=== PATIENT | male | born 1955 | race Caucasian/White ===

== ENCOUNTER 2017-11-27 09:32 | Inpatient (IN) | payer OTHER, BC ==
[2017-11-27 09:38] VITALS: BMI 32.5
[2017-11-27] MEDS ORDERED: PIPERACIL/TAZOB 3.375 GM 3.375 GM/50 ML PREMIX IVPB ONE (12:39)
[2017-11-27] MEDS ORDERED: VANCOMYCIN 1,000 MG in DEXTROSE 5%-WATER - 250 ML IVPB ONE (12:39)
--- NOTE | 2017-11-27 12:39 | PDOC ---
History of Present Illness - General Chief Complaint: Wound Infection Stated Complaint: PT SENT BY PCP Time Seen by Provider: 11/27/17 12:26 History Source: Patient Exam Limitations: No Limitations - History of Present Illness Initial Comments: 11/27/17 12:47 Patient is a 62-year-old male past medical history of an IDDM, hypertension, who presents emergency department today for evaluation of his wound. Patient states he was seen in his vermin exterminator office (Dr. Perry) yesterday and was found to have a diabetic foot ulcer to the bottom of his left foot. Upon further evaluation of his foot, his vermin exterminator also found cellulitis. Told patient he should present to the emergency department for IV antibiotics. Patient states that he has some pain to the left foot however he otherwise feels fine. Denies fevers, chills, flulike symptoms, chest pain, shortness of breath, nausea, vomiting, diarrhea, headache, dizziness and lightheadedness. Past History - Travel Traveled outside of the country in the last 30 days: No Close contact w/someone who was outside of country & ill: No - Past Medical History Allergies/Adverse Reactions: Allergies Allergy/AdvReac Type Severity Reaction Status Date / Time No Known Allergies Allergy Verified 11/27/17 09:37 Home Medications: Ambulatory Orders Alfuzosin HCl [Alfuzosin HCl ER] 10 mg PO DAILY 11/27/17 Dapagliflozin Propanediol [Farxiga] 10 mg PO DAILY 11/27/17 Dulaglutide [Trulicity] 0.75 mg SCJ WEEKLY 11/27/17 Glimepiride 4 mg PO BID 11/27/17 Levothyroxine [Synthroid -] 50 mcg PO DAILY 11/27/17 Losartan-Hctz 100-25 mg Tab 100 mg PO DAILY 11/27/17 Metformin HCl [Glucophage] 1,000 mg PO BID 11/27/17 Ranolazine [Ranexa] 500 mg PO DAILY 11/27/17 Rosuvastatin [Crestor -] 5 mg PO HS 11/27/17 CVA: No COPD: No Diabetes: Yes HTN: Yes Hypercholesterolemia: Yes Thyroid Disease: Yes - Suicide/Smoking/Psychosocial Hx Smoking Status: No Smoking History: Former smoker Have you smoked in the past 12 months: No Number of Cigarettes Smoked Daily: 0 If you are a former smoker, when did you quit?: 28 YRS Information on smoking cessation initiated: No Hx Alcohol Use: Yes (SOCIAL) Drug/Substance Use Hx: No Substance Use Type: None Review of Systems - Review of Systems Able to Perform ROS?: Yes Comments:: 11/27/17 13:31 CONSTITUTIONAL: Absent: fever, chills, diaphoresis, generalized weakness, malaise, loss of appetite HEENT: Absent: rhinorrhea, nasal congestion, throat pain, throat swelling, difficulty swallowing, mouth swelling, ear pain, eye pain, visual Changes CARDIOVASCULAR: Absent: chest pain, loss of consciousness, palpitations, irregular heart rate, peripheral edema RESPIRATORY: Absent: cough, shortness of breath, dyspnea with exertion, orthopnea, wheezing, stridor, hemoptysis GASTROINTESTINAL: Absent: abdominal pain, abdominal distension, nausea, vomiting, diarrhea, constipation, melena, hematochezia GENITOURINARY: Absent: dysuria, frequency, urgency, hesitancy, hematuria, flank pain, genital pain MUSCULOSKELETAL: Absent: myalgia, arthralgia, joint swelling SKIN: Present: foot ulcer L. Absent: rash, itching, pallor HEMATOLOGIC/IMMUNOLOGIC: Absent: easy bleeding, easy bruising, lymphadenopathy, frequent infections ENDOCRINE: Absent: unexplained weight gain, unexplained weight loss, heat intolerance, cold intolerance NEUROLOGIC: Absent: headache, focal weakness or paresthesias, dizziness, unsteady gait, seizure, mental status changes, bladder or bowel incontinence PSYCHIATRIC: Absent: anxiety, depression, suicidal or homicidal ideation, hallucinations. Is the patient limited Mauritanian proficient: No *Physical Exam - Vital Signs Last Vital Signs Temp Pulse Resp BP Pulse Ox 98.0 F 104 H 20 133/76 97 11/27/17 09:34 11/27/17 09:34 11/27/17 09:34 11/27/17 09:34 11/27/17 09:34 - Physical Exam Comments: 11/27/17 13:32 GENERAL: Well developed, well nourished. Awake and alert x3. No acute distress. Breathing easily on exam bed. HEENT: Normocephalic, atraumatic. PERRLA, EOMI. No conjunctival pallor. Sclera are non- icteric. Moist mucous membranes. Oropharynx is clear. NECK: Supple. Full ROM. No JVD. Carotid pulses 2+ and symmetric, without bruits. No thyromegaly. No lymphadenopathy. CARDIOVASCULAR: Regular rate and rhythm. No murmurs, rubs, or gallops. Distal pulses are 2+ and symmetric. PULMONARY: No evidence of respiratory distress. Lungs clear to auscultation bilaterally. No wheezing, rales or rhonchi. ABDOMINAL: Soft. Non-tender. Non-distended. No rebound or guarding. No organomegaly. Normoactive bowel sounds. MUSCULOSKELETAL Normal range of motion at all joints. No bony deformities or tenderness. No CVA tenderness. EXTREMITIES: No cyanosis. No clubbing. No edema. No calf tenderness. SKIN: 2cm round stage II/III diabetic foot ulcer to the sole of the L foot. Streaking cellulitis to the sole of the foot and ankle. No crepitus felt on exam.Warm and dry. Normal capillary refill. No rashes. No jaundice. NEUROLOGICAL: Alert, awake, appropriate. Cranial nerves 2-12 intact. No deficits to light touch and temperature in face, upper extremities and lower extremities. No motor deficits in the in face, upper extremities and lower extremities. Normoreflexic in the upper and lower extremities. Normal speech. Toes are down- going bilaterally. Gait is normal without ataxia. PSYCHIATRIC: Cooperative. Good eye contact. Appropriate mood and affect. ED Treatment Course - LABORATORY CBC & Chemistry Diagram: 11/27/17 13:25 11/27/17 13:25 Medical Decision Making - Medical Decision Making 11/27/17 13:26 Patient is a 62-year-old male past medical history of NIDDM, hypertension, who presents to the emergency department for infected foot ulcer of his left sole with associated cellulitis. Patient is currently afebrile in the department vital signs are stable. We will draw basic lab work, blood cultures and start IV antibiotics at this time. Anticipate admission for further management of his foot ulcer. 1.CBC, CMP, PT/INR, blood cultures 2.wound culture 3.IV Zosyn and Vanc 4.reevaluate 11/27/17 14:46 No leukocytosis, blood glucose is 300 at this time. We'll order 5 units of insulin. Other electrolytes are within normal limits. Dr. Wright paged for admission. 11/27/17 15:[address] Wright, case discussed and accepts pt for admission. Requests Dr. Westbrook's group for ID consult. *DC/Admit/Observation/Transfer Diagnosis at time of Disposition: Cellulitis of left foot Diabetic foot ulcer Qualifiers: Diabetic foot ulcer location: midfoot Diabetes mellitus type: type 2 Laterality : left Non-pressure ulcer stage: with muscle involvement without evidence of necrosis Qualified Code(s): E11.621 - Type 2 diabetes mellitus with foot ulcer Diabetes type 2, uncontrolled Qualifiers: Diabetes mellitus complication status: with skin complications Diabetes mellitus complication detail: with foot ulcer Diabetes mellitus terminal gauger supervisor insulin use: without penitentiary use Qualified Code(s): E11.621 - Type 2 diabetes mellitus with foot ulcer - Discharge Dispostion Condition at time of disposition: Stable Admit: Yes - Referrals - Patient Instructions - Post Discharge Activity
[2017-11-27 13:34] LABS: BASO % 0.3 % (0-2.0); EOS % 1.4 % (0-4.5); HEMATOCRIT 44.8 % (35.4-49); HEMOGLOBIN 15.1 GM/dL (11.7-16.9); LYMPH % 24.5 % (8-40); MCH 30.1 pg (25.7-33.7); MCHC 33.7 g/dl (32.0-35.9); MEAN CELL VOLUME 89.4 fl (80-96); MEAN PLT VOLUME 9.2 fl (7.5-11.1); MONO % 9.2 % (3.8-10.2); NEUT % 64.6 % (42.8-82.8); PLATELET COUNT 162 K/MM3 (134-434); RBC 5.01 M/mm3 (4.00-5.60); RDW 12.9 % (11.9-15.9); WHITE BLOOD COUNT 7.8 K/mm3 (4.0-10.0)
[2017-11-27 13:47] LABS: INR 0.98 (0.82-1.09); PROTHROMBIN TIME (PATIENT) 11.1 SEC (9.98-11.88)
[2017-11-27] MEDS ORDERED: VANCOMYCIN 1 GRAM (PRE-DOCKED) 1,000 MG/250 ML BAG IVPB ONE (13:48)
[2017-11-27 13:56] LABS: ALBUMIN 3.5 g/dl (3.4-5.0); ALK PHOS 67 U/L (45-117); ANION GAP 9 (8-16); BILIRUBIN,TOTAL 0.4 mg/dL (0.2-1.0); BLOOD UREA NITROGEN 24 mg/dL (7-18); CALCIUM 8.9 mg/dL (8.5-10.1); CHLORIDE 96 mmol/L (98-107); CO2 29 mmol/L (21-32); CREATININE 1.2 mg/dL (0.7-1.3); POTASSIUM 3.8 mmol/L (3.5-5.1); SGOT/AST 11 U/L (15-37); SGPT/ALT 25 U/L (12-78); SODIUM 134 mmol/L (136-145); TOT PROT 6.8 g/dl (6.4-8.2)
[2017-11-27 14:20] LABS: GLUCOSE,RANDOM 313 mg/dL (74-106)
[2017-11-27] MEDS ORDERED: INSULIN REGULAR HUMAN 100 UNITS/ML *VIAL IVPUSH ONE (14:21)
[2017-11-27] MEDS ORDERED: ACETAMINOPHEN 325 MG TABLET (FP) PO PRN (15:31)
[2017-11-27] MEDS ORDERED: INSULIN REGULAR HUMAN 100 UNITS/ML *VIAL ONE ×2 (15:38→19:04)
--- NOTE | 2017-11-27 17:14 | CON.ID ---
Consult Consult Specialty:: infectious disease Referred by:: foot ulcer - History of Present Illness Chief Complaint: increaseing swelling and erythema right foot History of Present Illness: 62 year old man with NIDDM for over 20 years, pulled a scab off the sole of his foot about one to 2 weeks ago- used bacitraicn - noted on Saturday that the foot was getting red and swoollen in the fore foot- he saw his social media manager Dr Perry who sent him to the ED no fevers or chills, otherwise feels well recent antibiotics- ?amox for tooth extraction two weeks ago given vanco/zosyn in ED reports foot with less erythema and swelling now - History Source History Provided By: Patient Limitations to Obtaining History: No Limitations - Past Medical History Cardio/Vascular: Yes: HTN Endocrine: Yes: Diabetes Mellitus, Hypothyroidism Additional Medical History: hyperlipidemia - Past Surgical History Past Surgical History: Yes: None - Alcohol/Substance Use Hx Alcohol Use: Yes (SOCIAL) - Smoking History Smoking history: Former smoker Have you smoked in the past 12 months: No Aproximately how many cigarettes per day: 0 If you are a former smoker, when did you quit?: 28 YRS - Social History Usual Living Arrangement: With Spouse ADL: Independent Occupation: retired History of Recent Travel: No Home Medications - Allergies Allergies/Adverse Reactions: Allergies Allergy/AdvReac Type Severity Reaction Status Date / Time No Known Allergies Allergy Verified 11/27/17 09:37 - Home Medications Home Medications: Ambulatory Orders Alfuzosin HCl [Alfuzosin HCl ER] 10 mg PO DAILY 11/27/17 Dapagliflozin Propanediol [Farxiga] 10 mg PO DAILY 11/27/17 Dulaglutide [Trulicity] 0.75 mg SCJ WEEKLY 11/27/17 Glimepiride 4 mg PO BID 11/27/17 Levothyroxine [Synthroid -] 50 mcg PO DAILY 11/27/17 Losartan-Hctz 100-25 mg Tab 100 mg PO DAILY 11/27/17 Metformin HCl [Glucophage] 1,000 mg PO BID 11/27/17 Ranolazine [Ranexa] 500 mg PO DAILY 11/27/17 Rosuvastatin [Crestor -] 5 mg PO HS 11/27/17 Family Disease History - Family Disease History Family History: Unremarkable Review of Systems - Review of Systems Constitutional: reports: No Symptoms Eyes: reports: No Symptoms HENT: reports: No Symptoms Neck: reports: No Symptoms Cardiovascular: reports: No Symptoms Respiratory: reports: No Symptoms Gastrointestinal: reports: No Symptoms Genitourinary: reports: No Symptoms Musculoskeletal: reports: No Symptoms Integumentary: reports: Other (per HPI) Physical Exam Vital Signs: Vital Signs Temperature 98.0 F 11/27/17 09:34 Pulse Rate 104 H 11/27/17 09:34 Respiratory Rate 20 11/27/17 09:34 Blood Pressure 133/76 11/27/17 09:34 O2 Sat by Pulse Oximetry (%) 97 11/27/17 09:34 Constitutional: Yes: Well Nourished, No Distress, Calm Eyes: Yes: Conjunctiva Clear HENT: Yes: Atraumatic, Normocephalic. No: Thrush, Tonsillar Exudate Neck: Yes: WNL Cardiovascular: Yes: Regular Rate and Rhythm Respiratory: Yes: CTA Bilaterally Gastrointestinal: Yes: Normal Bowel Sounds, Soft, Abdomen, Obese ...Rectal Exam: Yes: Deferred Musculoskeletal: Yes: WNL Extremities: Yes: Other (mild erythema of the forefoot of the left leg, 1.5 cm ulcer on plantar aspect- shallow-does not probe to bone, no purulence, well circumscribed ulcer-) Edema: RLE: Trace Peripheral Pulses WNL: Yes Integumentary: Yes: WNL Labs: CBC, BMP 11/27/17 13:25 11/27/17 13:25 Imaging - Results X-ray: Pending Problem List - Problems (1) Cellulitis of left foot Code(s): L03.116 - CELLULITIS OF LEFT LOWER LIMB (2) Diabetic foot ulcer Code(s): E11.621 - TYPE 2 DIABETES MELLITUS WITH FOOT ULCER; L97.509 - NON- PRESSURE CHRONIC ULCER OTH PRT UNSP FOOT W UNSP SEVERITY Qualifiers: Diabetic foot ulcer location: midfoot Diabetes mellitus type: type 2 Laterality: left Non-pressure ulcer stage: with muscle involvement without evidence of necrosis Qualified Code(s): E11.621 - Type 2 diabetes mellitus with foot ulcer; L97.425 - Non-pressure chronic ulcer of left heel and midfoot with muscle involvement without evidence of necrosis; L97.425 - Non-pressure chronic ulcer of left heel and midfoot with muscle involvement without evidence of necrosis Assessment/Plan xray of foot esr/crp ulcer looks shallow and does not probe to bone mild cellulitis of the foot culturss sent in ED given vancomycin and zosyn start vanco/ceftriaxone f/u cultures hgb aic is over 8- needs better diabetic control
[2017-11-27] MEDS: metFORMIN HCL 500 MG TABLET (FP) PO SCH (18:18)
[2017-11-27] MEDS: INSULIN SLIDING SCALE (NOVOLOG) 1 VIAL SQ SCH ×2 (18:58→23:44)
[2017-11-27] MEDS: ROSUVASTATIN CA 5 MG TABLET (FP) PO SCH (23:44)
[2017-11-27] MEDS: RANOLAZINE E.R. 500 MG TABLET (FP) PO SCH (23:45)
[2017-11-27] MEDS: CEFTRIAXONE IN IS-OSM DEXTROSE 2 GM/50 ML BAG IVPB SCH (23:50)
[2017-11-28 00:48] LABS: URINE APPEARANCE CLEAR; URINE BILIRUBIN NEGATIVE (NEGATIVE); URINE BLOOD NEGATIVE (NEGATIVE); URINE COLOR YELLOW; URINE GLUCOSE (UA) 3+ (NEGATIVE); URINE KETONE NEGATIVE (NEGATIVE); URINE LEUK ESTERASE TRACE (NEGATIVE); URINE NITRITE NEGATIVE (NEGATIVE); URINE PROTEIN NEGATIVE (NEGATIVE); URINE UROBILINOGEN NEGATIVE mg/dL (0.2-1.0)
[2017-11-28 01:21] LABS: EPI CELLS RARE /HPF (FEW); URINE HYALINE CAST 1 /lpf; URINE MUCUS RARE
[2017-11-28] MEDS: INSULIN SLIDING SCALE (NOVOLOG) 1 VIAL SQ SCH ×4 (06:33→21:18)
[2017-11-28] MEDS: metFORMIN HCL 500 MG TABLET (FP) PO SCH (06:33)
[2017-11-28] MEDS ORDERED: LEVOTHYROXINE NA 50 MCG TABLET (FP) PO SCH (07:00)
[2017-11-28 08:49] LABS: HEMATOCRIT 45.2 % (35.4-49); HEMOGLOBIN 15.2 GM/dL (11.7-16.9); MCH 30.2 pg (25.7-33.7); MCHC 33.6 g/dl (32.0-35.9); MEAN CELL VOLUME 89.9 fl (80-96); MEAN PLT VOLUME 8.9 fl (7.5-11.1); PLATELET COUNT 158 K/MM3 (134-434); RBC 5.03 M/mm3 (4.00-5.60); RDW 12.8 % (11.9-15.9); WHITE BLOOD COUNT 6.6 K/mm3 (4.0-10.0)
[2017-11-28 09:20] LABS: ALBUMIN 3.5 g/dl (3.4-5.0); ANION GAP 9 (8-16); BILIRUBIN,TOTAL 0.3 mg/dL (0.2-1.0); BLOOD UREA NITROGEN 23 mg/dL (7-18); CALCIUM 8.8 mg/dL (8.5-10.1); CHLORIDE 101 mmol/L (98-107); CHOLESTEROL 161 mg/dL (50-200); CO2 29 mmol/L (21-32); CREATININE 0.9 mg/dL (0.7-1.3); GLUCOSE,RANDOM 180 mg/dL (74-106); SGOT/AST 10 U/L (15-37); SGPT/ALT 23 U/L (12-78); SODIUM 139 mmol/L (136-145); TRIGLYCERIDES 166 mg/dL (35-160)
[2017-11-28 09:22] LABS: ALK PHOS 56 U/L (45-117); TOT PROT 6.6 g/dl (6.4-8.2)
[2017-11-28 09:33] LABS: LDL CHOLESTEROL (ONLY SJRH) 90 mg/dL (5-100)
[2017-11-28 09:34] LABS: HDL CHOLESTEROL 47 mg/dL (40-60)
[2017-11-28] MEDS ORDERED: VANCOMYCIN 1,250 MG in DEXTROSE 5%-WATER - 250 ML IVPB SCH (10:00)
[2017-11-28] MEDS ORDERED: PT OWN MED DRAWER 7, Y5N ONE ×2 (10:31→21:10)
[2017-11-28] MEDS: RANOLAZINE E.R. 500 MG TABLET (FP) PO SCH ×2 (10:35→21:17)
[2017-11-28] MEDS: LOSARTAN 50MG/HCTZ 12.5MG 1 TAB (FP) PO SCH (10:35)
[2017-11-28] MEDS: CEFTRIAXONE IN IS-OSM DEXTROSE 2 GM/50 ML BAG IVPB SCH (10:36)
--- NOTE | 2017-11-28 10:40 | HP ---
Admitting History and Physical - Primary Care Physician PCP: Marcus Wright - Admission Chief Complaint: Diabetic foot ulcer History Source: Patient, Medical Record Limitations to Obtaining History: No Limitations - Past Medical History Cardiovascular: Yes: HTN, Hyperlipdemia, Other (Angina) Endocrine: Yes: Diabetes Mellitus, Hypothyroidism - Past Surgical History Past Surgical History: Yes: None - Smoking History Smoking history: Former smoker Have you smoked in the past 12 months: No Aproximately how many cigarettes per day: 0 If you are a former smoker, when did you quit?: 28 YRS - Alcohol/Substance Use Hx Alcohol Use: Yes (SOCIAL) - Social History ADL: Independent Occupation: retired History of Recent Travel: No Home Medications - Allergies Allergies/Adverse Reactions: Allergies Allergy/AdvReac Type Severity Reaction Status Date / Time No Known Allergies Allergy Verified 11/27/17 09:37 - Home Medications Home Medications: Ambulatory Orders Alfuzosin HCl [Alfuzosin HCl ER] 10 mg PO DAILY 11/27/17 Dapagliflozin Propanediol [Farxiga] 10 mg PO DAILY 11/27/17 Dulaglutide [Trulicity] 0.75 mg SCJ WEEKLY 11/27/17 Glimepiride 4 mg PO BID 11/27/17 Levothyroxine [Synthroid -] 50 mcg PO DAILY 11/27/17 Losartan-Hctz 100-25 mg Tab 100 mg PO DAILY 11/27/17 Metformin HCl [Glucophage] 1,000 mg PO BID 11/27/17 Ranolazine [Ranexa] 500 mg PO DAILY 11/27/17 Rosuvastatin [Crestor -] 5 mg PO HS 11/27/17 Review of Systems - Review of Systems Constitutional: reports: No Symptoms Eyes: reports: No Symptoms HENT: reports: No Symptoms Neck: reports: No Symptoms Cardiovascular: reports: No Symptoms Respiratory: reports: No Symptoms Gastrointestinal: reports: No Symptoms Genitourinary: reports: No Symptoms Breasts: reports: No Symptoms Reported Musculoskeletal: reports: No Symptoms Integumentary: reports: Erythema, Wound Neurological: reports: No Symptoms Endocrine: reports: No Symptoms Hematology/Lymphatic: reports: No Symptoms Psychiatric: reports: No Symptoms Physical Examination Vital Signs: Vital Signs Temperature 98.6 F 11/28/17 08:46 Pulse Rate 93 H 11/28/17 08:46 Respiratory Rate 16 11/28/17 08:46 Blood Pressure 139/80 11/28/17 08:46 O2 Sat by Pulse Oximetry (%) 98 11/28/17 00:00 Findings/Remarks: NAD, sitting in the chair IV abx seen by ID afebrile Constitutional: Yes: Well Nourished, No Distress, Calm Cardiovascular: Yes: Regular Rate and Rhythm Respiratory: Yes: Regular Gastrointestinal: Yes: Normal Bowel Sounds, Soft Musculoskeletal: Yes: WNL Extremities: Yes: Erythema (Left dorsal foot) Edema: No Peripheral Pulses WNL: Yes Neurological: Yes: Alert, Oriented Psychiatric: Yes: Alert, Oriented Labs: CBC, BMP 11/28/17 08:00 11/28/17 08:00 Imaging - Results X-ray: Report Reviewed Problem List - Problems (1) Cellulitis of left foot Assessment/Plan: ID consult -IV abx -Podiatry consult -pain management -MRI left foot Code(s): L03.116 - CELLULITIS OF LEFT LOWER LIMB (2) Diabetes type 2, uncontrolled Assessment/Plan: -endocrinology consult -insulin sliding scale -Diabetic diet -metformin on hold during inpatient stay -on glimepride and farxiga outpatient, continue glimeperide inpatient, hospital doesn't carry any SGLT2 inhibitors Code(s): E11.65 - TYPE 2 DIABETES MELLITUS WITH HYPERGLYCEMIA Qualifiers: Diabetes mellitus complication status: with skin complications Diabetes mellitus complication detail: with foot ulcer Diabetes mellitus snf insulin use: without petroleum terminal plant operator use Qualified Code(s): E11.621 - Type 2 diabetes mellitus with foot ulcer; E11.65 - Type 2 diabetes mellitus with hyperglycemia; E11.65 - Type 2 diabetes mellitus with hyperglycemia; E11.65 - Type 2 diabetes mellitus with hyperglycemia; E11.65 - Type 2 diabetes mellitus with hyperglycemia; L97.509 - Non-pressure chronic ulcer of other part of unspecified foot with unspecified severity; L97.509 - Non-pressure chronic ulcer of other part of unspecified foot with unspecified severity; L97.509 - Non -pressure chronic ulcer of other part of unspecified foot with unspecified severity; L97.509 - Non-pressure chronic ulcer of other part of unspecified foot with unspecified severity Assessment/Plan see problem list
[2017-11-28] MEDS ORDERED: CEFTRIAXONE IN IS-OSM DEXTROSE 2 GM/50 ML BAG IVPB SCH (11:00)
[2017-11-28] MEDS ORDERED: INSULIN (NOVOLOG) ASPART 100 UNITS/ML 10ML VIAL ONE ×3 (11:30→21:10)
--- NOTE | 2017-11-28 13:44 | PN ---
Progress Note, Physician Chief Complaint: ID Vancomycin Ceftriaxone No complaints - Current Medication List Current Medications: Active Medications Acetaminophen (Tylenol -) 650 mg PO Q6H PRN PRN Reason: PAIN OR FEVER Glimepiride (Amaryl -) 4 mg PO BIDI [facility] HCTZ/Losartan Potassium (Hyzaar -) 1 tab PO DAILY [facility] Last Admin: 11/28/17 10:35 Dose: 1 tab CEFTRIAXONE IN IS-OSM DEXTROSE (Ceftriaxone 2 Gm-D5w Bag) 2 gm in 50 mls @ 100 mls/hr IVPB DAILY [facility] Last Admin: 11/28/17 10:56 Dose: Not Given Vancomycin HCl 1,250 mg/ (Sodium Chloride) 250 mls @ 166.667 mls/hr IVPB DAILY@ 1500 [facility] PRN Reason: Protocol Insulin Aspart (Novolog Vial Sliding Scale -) 1 vial SQ ACHS [facility] PRN Reason: Protocol Last Admin: 11/28/17 11:24 Dose: 6 unit Levothyroxine Sodium (Synthroid -) 50 mcg PO AM [facility] Ranolazine (Ranexa -) 500 mg PO BID [facility] Last Admin: 11/28/17 10:35 Dose: 500 mg Rosuvastatin Calcium (Crestor -) 5 mg PO HS [facility] Last Admin: 11/27/17 23:44 Dose: Not Given Tamsulosin HCl (Flomax -) 0.4 mg PO DAILY@0830 [facility] - Objective Vital Signs: Vital Signs Temperature 98.6 F 11/28/17 08:46 Pulse Rate 93 H 11/28/17 08:46 Respiratory Rate 16 11/28/17 08:46 Blood Pressure 139/80 11/28/17 08:46 O2 Sat by Pulse Oximetry (%) 99 11/28/17 09:00 HENT: Yes: WNL, Atraumatic Neck: Yes: WNL, Supple Cardiovascular: Yes: S1, S2 Respiratory: Yes: WNL, Regular, CTA Bilaterally Gastrointestinal: Yes: WNL, Normal Bowel Sounds, Soft. No: Tenderness Extremities: Yes: Other (Plantar ulcer swellling redness better minimal drainage ) Labs: CBC, BMP 11/28/17 08:00 11/28/17 08:00 INR, PTT INR 0.98 (0.82-1.09) 11/27/17 13:25 Assessment/Plan Microbiology 11/27/17 13:25 Blood - Peripheral Venous Blood Culture - Preliminary NO GROWTH OBTAINED AFTER 24 HOURS, INCUBATION TO CONTINUE FOR 4 DAYS. Laboratory Tests 11/28/17 11/28/17 11/28/17 08:00 08:00 08:00 Hgb 15.2 ESR 23 H BUN 23 H Creatinine 0.9 D Assessment Diabetic foot infection plantar ulcer cellultitis rule out osteo ESR CRP low but not diagnostic for osteo Plan Continue Antibiotics Vancom Zosyn MRI foot rule out osteo
[2017-11-28] MEDS ORDERED: VANCOMYCIN 1,250 MG in SODIUM CHLORIDE 250 ML IVPB SCH (15:00)
[2017-11-28] MEDS: PIPERACILLIN/TAZOB 4.5 GM 4.5 GM/100 ML BAG IVPB SCH ×2 (15:29→18:15)
[2017-11-28] MEDS ORDERED: diazePAM 5 MG TABLET PO ONE (15:45)
[2017-11-28] MEDS: GLIMEPIRIDE 4 MG TABLET (FP) PO SCH (16:58)
[2017-11-28] MEDS: ROSUVASTATIN CA 5 MG TABLET (FP) PO SCH (21:17)
[2017-11-29] MEDS: PIPERACILLIN/TAZOB 4.5 GM 4.5 GM/100 ML BAG IVPB SCH ×2 (01:33→10:13)
[2017-11-29] MEDS: GLIMEPIRIDE 4 MG TABLET (FP) PO SCH (06:18)
[2017-11-29] MEDS: INSULIN SLIDING SCALE (NOVOLOG) 1 VIAL SQ SCH ×2 (06:19→11:35)
[2017-11-29] MEDS ORDERED: LEVOTHYROXINE NA 50 MCG TABLET (FP) PO SCH (07:00)
[2017-11-29] MEDS ORDERED: TAMSULOSIN HCL 0.4 MG CAP.ER.24H (FP) PO SCH (08:30)
[2017-11-29] MEDS ORDERED: PT OWN MED DRAWER 7, Y5N ONE (10:10)
[2017-11-29] MEDS: LOSARTAN 50MG/HCTZ 12.5MG 1 TAB (FP) PO SCH (10:13)
[2017-11-29] MEDS: RANOLAZINE E.R. 500 MG TABLET (FP) PO SCH (10:13)
--- NOTE | 2017-11-29 10:49 | PN ---
Progress Note, Physician Chief Complaint: Left foot diabetic ulcer History of Present Illness: NAD, self ambulatory seen by ID IV abx MRI possible osteo? - Current Medication List Current Medications: Active Medications Acetaminophen (Tylenol -) 650 mg PO Q6H PRN PRN Reason: PAIN OR FEVER Glimepiride (Amaryl -) 4 mg PO BIDI [facility] Last Admin: 11/29/17 06:18 Dose: 4 mg HCTZ/Losartan Potassium (Hyzaar -) 1 tab PO DAILY [facility] Last Admin: 11/29/17 10:13 Dose: 1 tab Vancomycin HCl 1,250 mg/ (Sodium Chloride) 250 mls @ 166.667 mls/hr IVPB DAILY@ 1500 [facility] PRN Reason: Protocol Last Admin: 11/28/17 18:57 Dose: 166.667 mls/hr Piperacillin/Tazobactam/Dextrose (Zosyn 4.5gm Ivpb (Premix)) 4.5 gm in 100 mls @ 200 mls/hr IVPB Q8H-IV [facility] PRN Reason: Protocol Last Admin: 11/29/17 10:13 Dose: 200 mls/hr Insulin Aspart (Novolog Vial Sliding Scale -) 1 vial SQ ACHS [facility] PRN Reason: Protocol Last Admin: 11/29/17 06:19 Dose: 2 unit Levothyroxine Sodium (Synthroid -) 50 mcg PO AM [facility] Last Admin: 11/29/17 06:18 Dose: 50 mcg Ranolazine (Ranexa -) 500 mg PO BID [facility] Last Admin: 11/29/17 10:13 Dose: 500 mg Rosuvastatin Calcium (Crestor -) 10 mg PO [facility] Tamsulosin HCl (Flomax -) 0.4 mg PO DAILY@0830 [facility] Last Admin: 11/29/17 10:13 Dose: 0.4 mg - Objective Vital Signs: Vital Signs Temperature 98.5 F 11/29/17 05:54 Pulse Rate 82 11/29/17 05:54 Respiratory Rate 20 11/29/17 05:54 Blood Pressure 125/63 11/29/17 05:54 O2 Sat by Pulse Oximetry (%) 99 11/28/17 20:46 Constitutional: Yes: Well Nourished, No Distress, Calm Cardiovascular: Yes: Regular Rate and Rhythm Respiratory: Yes: Regular Gastrointestinal: Yes: Normal Bowel Sounds, Soft Musculoskeletal: Yes: WNL Extremities: Yes: WNL Edema: No Peripheral Pulses WNL: Yes Wound/Incision: Yes: Dressing Dry and Intact Neurological: Yes: Alert, Oriented Psychiatric: Yes: Alert, Oriented Labs: CBC, BMP 11/28/17 08:00 11/28/17 08:00 INR, PTT INR 0.98 (0.82-1.09) 11/27/17 13:25 Problem List - Problems (1) Cellulitis of left foot Assessment/Plan: ID consult -IV abx -Awaiting Podiatry consult -pain management -MRI left foot Code(s): L03.116 - CELLULITIS OF LEFT LOWER LIMB (2) Diabetes type 2, uncontrolled Assessment/Plan: -endocrinology consult -insulin sliding scale -Diabetic diet -metformin on hold during inpatient stay -on glimepride and farxiga outpatient, continue glimeperide inpatient, hospital doesn't carry any SGLT2 inhibitors Code(s): E11.65 - TYPE 2 DIABETES MELLITUS WITH HYPERGLYCEMIA Qualifiers: Diabetes mellitus complication status: with skin complications Diabetes mellitus complication detail: with foot ulcer Diabetes mellitus longterm insulin use: without terminal worker use Qualified Code(s): E11.621 - Type 2 diabetes mellitus with foot ulcer; E11.65 - Type 2 diabetes mellitus with hyperglycemia; E11.65 - Type 2 diabetes mellitus with hyperglycemia; E11.65 - Type 2 diabetes mellitus with hyperglycemia; E11.65 - Type 2 diabetes mellitus with hyperglycemia; L97.509 - Non-pressure chronic ulcer of other part of unspecified foot with unspecified severity; L97.509 - Non-pressure chronic ulcer of other part of unspecified foot with unspecified severity; L97.509 - Non -pressure chronic ulcer of other part of unspecified foot with unspecified severity; L97.509 - Non-pressure chronic ulcer of other part of unspecified foot with unspecified severity Assessment/Plan see problem list Plan abx as per ID
--- NOTE | 2017-11-29 11:50 | DS ---
Physical Examination Vital Signs: Vital Signs Temperature 98.5 F 11/29/17 05:54 Pulse Rate 82 11/29/17 05:54 Respiratory Rate 20 11/29/17 05:54 Blood Pressure 125/63 11/29/17 05:54 O2 Sat by Pulse Oximetry (%) 99 11/28/17 20:46 Constitutional: Yes: Well Nourished, No Distress, Calm Cardiovascular: Yes: Regular Rate and Rhythm Respiratory: Yes: Regular Musculoskeletal: Yes: WNL Extremities: Yes: WNL Edema: No Peripheral Pulses WNL: Yes Neurological: Yes: Alert, Oriented Psychiatric: Yes: Alert, Oriented Labs: CBC, BMP 11/28/17 08:00 11/28/17 08:00 Discharge Summary Reason For Visit: DIABETIC FOOT ULCER Current Active Problems Cellulitis of left foot (Acute) Diabetes type 2, uncontrolled (Acute) Diabetic foot ulcer (Acute) Hospital Course: Patient is a 62-year-old male past medical history of an IDDM, hypertension, who presents emergency department today for evaluation of his wound. Patient states he was seen in his senior underwriting assistant office (Dr. Perry) yesterday and was found to have a diabetic foot ulcer to the bottom of his left foot. Upon further evaluation of his foot, his senior underwriting assistant also found cellulitis. Told patient he should present to the emergency department for IV antibiotics. Patient states that he has some pain to the left foot however he otherwise feels fine. Denies fevers, chills, flulike symptoms, chest pain, shortness of breath, nausea, vomiting, diarrhea, headache, dizziness and lightheadedness. During his stay he was evaluated by ID and was treated with IV abx-Zosyn and vancomycin. The wound culture is pending. he also had MRI LLE which could not exclude osteomyelitis. Condition: Stable - Instructions Diet, Activity, Other Instructions: -Low sodium diabetic diet -Augmentin 875-125 mg 2 x day for 7 days -Follow up with Podiatry Dr Pineda within 1 week -Follow up with PCP within 2 weeks Referrals: Marcus Wright MD [Primary Care Provider] - Disposition: VNS/HOME HEALTH CARE - Home Medications Comprehensive Discharge Medication List: Ambulatory Orders Alfuzosin HCl [Alfuzosin HCl ER] 10 mg PO DAILY 11/27/17 Dapagliflozin Propanediol [Farxiga] 10 mg PO DAILY 11/27/17 Dulaglutide [Trulicity] 0.75 mg SCJ WEEKLY 11/27/17 Glimepiride 4 mg PO BID 11/27/17 Levothyroxine [Synthroid -] 50 mcg PO DAILY 11/27/17 Losartan-Hctz 100-25 mg Tab 100 mg PO DAILY 11/27/17 Metformin HCl [Glucophage] 1,000 mg PO BID 11/27/17 Ranolazine [Ranexa] 500 mg PO DAILY 11/27/17 Rosuvastatin [Crestor -] 5 mg PO HS 11/27/17
[2017-11-29 13:55] VITALS: BP 108/68; PULSE 86
[2017-11-29 14:02] VITALS: TEMP 97.6
[2017-11-29] MEDS ORDERED: ROSUVASTATIN CA 10 MG TABLET (FP) PO SCH (22:00)
[2017-11-30 16:14] LABS: MICROALBUMIN/CREATININE RATIO 52.8 mg/g creat (0.0-30.0)
== END 2017-11-29 14:30 | disposition home or self-care (01) | DRG 603 ==
LOC: JER 09:32 → JERBED 14:54 → J6S 22:31
PROVIDERS: ADMIT Family Medicine; ATTEND Family Medicine
DX: L03.116 Cellulitis of left lower limb (principal); E11.621 Type 2 diabetes mellitus with foot ulcer; I10 Essential (primary) hypertension; Z79.84 Long term (current) use of oral hypoglycemic drugs; Z87.891 Personal history of nicotine dependence; E11.65 Type 2 diabetes mellitus with hyperglycemia; L97.529 Non-pressure chronic ulcer of other part of left foot with unspecified severity
CPT/HCPCS: 36415; 73630-TC-LT; 73718-LT; 80053; 80061; 81003; 81015; 82043; 82570; 82962; 83036; 83721; 85025; 85027; 85610; 85651; 86140; 87040; 87070; 87086; 87186; 87205; 99285-25; G0480

== ENCOUNTER 2018-04-13 12:24 | Emergency (ER) | payer OTHER, BC ==
[2018-04-13 12:29] VITALS: TEMP 97; BMI 32.5
--- NOTE | 2018-04-13 13:02 | PDOC ---
History of Present Illness - General Chief Complaint: Pain Stated Complaint: RT KNEE PAIN Time Seen by Provider: 04/13/18 12:53 - History of Present Illness Initial Comments: 04/13/18 13:00 62 yo M with h/o NIDDM, HTN, HLD who p/w R knee pain. Patient reports acute onset R knee pain following standing up and falling back onto couch yesterday morning. Patient denies twisting foot/knee injury, head/neck/back trauma, or LOC. Reports low mechanism of action injury. Patient woke up this AM with severe lateral R knee pain. Inability to bear weight on R knee. Denies OTC analgesia. Denies trauma to the knee. Denies F/C, N/V, CP, SOB, abdominal pain, diarrhea, constipation, urinary complaints, weakness, lightheadedness, sensory changes. PMHx: as noted above. Patient not on antibiotic medication ROS: as noted above Allergies: NKDA Past History - Past Medical History Allergies/Adverse Reactions: Allergies Allergy/AdvReac Type Severity Reaction Status Date / Time No Known Allergies Allergy Verified 04/13/18 12:29 Home Medications: Ambulatory Orders Alfuzosin HCl [Alfuzosin HCl ER] 10 mg PO DAILY 11/27/17 Dapagliflozin Propanediol [Farxiga] 10 mg PO DAILY 11/27/17 Dulaglutide [Trulicity] 0.75 mg SCJ WEEKLY 11/27/17 Glimepiride 4 mg PO BID 11/27/17 Levothyroxine [Synthroid -] 50 mcg PO DAILY 11/27/17 Losartan-Hctz 100-25 mg Tab 100 mg PO DAILY 11/27/17 Metformin HCl [Glucophage] 1,000 mg PO BID 11/27/17 Ranolazine [Ranexa] 500 mg PO DAILY 11/27/17 Rosuvastatin [Crestor -] 5 mg PO HS 11/27/17 Collagenase Clostridium Hist. [Santyl] 1 applic TP DAILY #90 oint...g. 12/09/17 CVA: No COPD: No Diabetes: Yes HTN: Yes Hypercholesterolemia: Yes Thyroid Disease: Yes (Hypothyroidism) - Immunization History Immunization Up to Date: Yes - Suicide/Smoking/Psychosocial Hx Smoking Status: No Smoking History: Never smoked Have you smoked in the past 12 months: No Number of Cigarettes Smoked Daily: 0 If you are a former smoker, when did you quit?: 28 YRS Information on smoking cessation initiated: No Hx Alcohol Use: Yes (SOCIAL) Drug/Substance Use Hx: No Substance Use Type: None Review of Systems - Review of Systems Comments:: 04/13/18 13:00 GENERAL/CONSTITUTIONAL: No fever or chills. No weakness. HEAD, EYES, EARS, NOSE AND THROAT: No change in vision. No ear pain or discharge. No sore throat. CARDIOVASCULAR: No chest pain or shortness of breath RESPIRATORY: No cough, wheezing, or hemoptysis. GASTROINTESTINAL: No nausea, vomiting, diarrhea or constipation. GENITOURINARY: No dysuria, frequency, or change in urination. MUSCULOSKELETAL:+ R knee pain. No neck or back pain. SKIN: No rash NEUROLOGIC: No headache, vertigo, loss of consciousness, or change in strength/ sensation. ENDOCRINE: No increased thirst. No abnormal weight change HEMATOLOGIC/LYMPHATIC: No anemia, easy bleeding, or history of blood clots. ALLERGIC/IMMUNOLOGIC: No hives or skin allergy. *Physical Exam - Vital Signs Last Vital Signs Temp Pulse Resp BP Pulse Ox 97 F L 98 H 18 165/98 97 04/13/18 12:25 04/13/18 12:25 04/13/18 12:25 04/13/18 12:25 04/13/18 12:25 - Physical Exam Comments: 04/13/18 13:01 GENERAL: Awake, alert, and fully oriented, in no acute distress HEAD: No signs of trauma, normocephalic, atraumatic EYES: PERRLA, EOMI, sclera anicteric, conjunctiva clear ENT: Hearing grossly normal, nares patent, oropharynx clear without exudates. Moist mucosa NECK: Normal ROM, supple, no lymphadenopathy, JVD, or masses LUNGS: No distress, speaks full sentences, clear to auscultation bilaterally HEART: Regular rate and rhythm, normal S1 and S2, no murmurs, rubs or gallops, peripheral pulses normal and equal bilaterally. EXTREMITIES : Normal inspection, Normal range of motion, no edema. No clubbing or cyanosis. + left sided limping gait. Boot on L foot, with L sided 1 mm healed plantar ulcer. R KNEE: R knee biceps femoris tendon ttp. Absent effusion, ecchymosis, varus/ valgus deformity. Absent pretibeal plateau ttp. Limited active and passive ROM d /t pain. Normal joint laxity. Nml posterior patella fossa. 2+ equal palpable and symmetric peripheral DP and PT pulses. SKIN: Warm, Dry, normal turgor, no rashes or lesions noted Medical Decision Making - Medical Decision Making 04/13/18 13:30 62 yo M with h/o NIDDM, HTN, HLD who p/w R knee pain. Patient reports acute onset R knee pain following standing up and falling back onto couch yesterday morning. VSS, AF, A%Ox3. No obvious bony deformity on R knee exam. No joint effusion, ecchymosis. + R knee biceps femoris tendon ttp. R/o patellar fracture/ dislocation. Will consider tendinous rupture, or knee sprain/strain. Pain control, R knee RAD, and reassess. ED Course: R KNEE RAD Naproxen 500 mg 04/13/18 14:22 R KNEE RAD: No acute pathology. Old avulsion at lateral distal femur. Patient stable for d/c with return precautions. Advised to f/u with PMD and ortho. Knee immobilizer applied to affected knee. *DC/Admit/Observation/Transfer Diagnosis at time of Disposition: Knee pain, acute Qualifiers: Laterality: left Qualified Code(s): M25.562 - Pain in left knee - Discharge Dispostion Disposition: HOME Condition at time of disposition: Stable - Referrals Referrals: Marcus Wright MD [Primary Care Provider] - Kyree Moreno MD [Staff Physician] - - Patient Instructions Printed Discharge Instructions: DI for Knee Pain Additional Instructions: Please return to the emergency department with any new or worsening symptoms or concerns. Please follow up with your primary care physician within 72 hours. Can take 600 mg Ibruprofen every 4-6 hours as needed for pain in conjunction with Tylenol ( max 3200 mg per day). Please follow up with orthopedics within one week. - Post Discharge Activity - Attestations Physician Attestion: 04/13/18 13:01 I attest to the information provided in this note.
[2018-04-13] MEDS ORDERED: NAPROXEN 500 MG TABLET (FP) PO ONE (13:15)
[2018-04-13] MEDS ORDERED: NAPROXEN 500 MG TABLET (FP) ONE (13:22)
[2018-04-13 14:39] VITALS: BP 148/92; PULSE 86
--- NOTE | 2018-04-13 14:48 | PDOC ---
Attending Attestation - Resident Resident Name: Chadwick Harrellson - ED Attending Attestation I have performed the following: I have examined & evaluated the patient, The case was reviewed & discussed with the resident, I agree w/resident's findings & plan, Exceptions are as noted - HPI HPI: 04/13/18 14:44 60 yo male h/o foot ulcer left foot, here with c/o injury to right knee. states he woke up and on standing felt sudden pain in right knee. feels he was bearing weight differently, was concerned about his left plantar foot ulcer. no eccymosis, no swelling. pain with straightening. no f/c no cp no sob. - Physicial Exam PE: 04/13/18 14:46 awake alert nad. lungs clear bilaterally. heart rrr no mrg. abd soft nt nd. ext wwp right knee lateral ttp, no effusion. pain with extension. no warmth. ankle and hip NT FROM. left plantar surface foot, ulcer 0.5cm, cdi. no erythema. - Medical Decision Making 04/13/18 14:47 63 m s/p right knee injury. differential: ligmentous or meniscus injury, bony injury, plan xray sandeep control. crutches knee immobilizer. fu ortho
== END 2018-04-13 15:42 | disposition home or self-care (01) ==
LOC: JER 12:24
DX: M25.561 Pain in right knee (principal); W01.190A Fall on same level from slipping, tripping and stumbling with subsequent striking against furniture, initial encounter; Y93.89 Activity, other specified; Y92.018 Other place in single-family (private) house as the place of occurrence of the external cause; Y99.8 Other external cause status; I10 Essential (primary) hypertension; E78.00 Pure hypercholesterolemia, unspecified; E03.9 Hypothyroidism, unspecified; E11.9 Type 2 diabetes mellitus without complications; Z79.84 Long term (current) use of oral hypoglycemic drugs
CPT/HCPCS: 73562-TC-RT-FY; 99282-25